=== PATIENT | male | born 1925 | race Caucasian/White ===

== ENCOUNTER 2016-09-02 23:33 | Inpatient (IN) | payer MEDICARE ==
[~2016-09-02] VITALS: Ht 182.9 cm; Wt 84.5 kg
[2016-09-02 23:48] VITALS: BP 141/55; PULSE 76; RESP 16; O2SAT 98
--- NOTE | 2016-09-02 23:49 | ED.REPORT ---
HPI-Trauma Minor / Fall Date of Service Sep 02, 2016 ED Provider: Edmond Velasquez DO An 89 year old male with a history of COPD is brought to the ED via EMS due to left hip pain. The pt was sitting in a chair tonight in his care home home when he attempted to stand to close a window. The pt fell from the chair onto his left hip, resulting in immediate pain. He denies trauma of his head, neck, or upper extremities. Nursing Notes Stated Complaint: GLF, LT HIP PAIN Chief Complaint: Multiple Trauma/Fall Nursing Notes Reviewed: Yes Allergies: Coded Allergies: Sulfa (Sulfonamide Antibiotics) (Verified Allergy, Intermediate, rash, ) cefuroxime (Verified Allergy, Mild, weakness, 09/03/16) clindamycin (Verified Allergy, Mild, diarrhea, 09/03/16) benazepril (Verified Allergy, Unknown, 09/03/16) gemfibrozil (Verified Allergy, Unknown, 09/03/16) levofloxacin (Verified Allergy, Unknown, 09/03/16) metformin (Verified Allergy, Unknown, 09/03/16) naproxen (Verified Allergy, Unknown, 09/03/16) rosuvastatin (Verified Allergy, Unknown, 09/03/16) Miscellaneous Medications ([ventolin]) General Time Seen by MD: 23:49 Chief Complaint Other (Left hip pain) Hx Obtained From: Patient, EMS Arrived By: Ambulance Onset Occurred: 1 - 4 hours ago Symptom Duration: Since onset Recent Healthcare: No recent doctor visit, No recent hospitalization Similar Sx Previous: No Past Medical History Past Medical History COPD, uses inhaler hard of hearing Past Surgical History none reported Smoking History Unknown if Ever Smoker Social History lives in care home home Ambulatory Status Independent Review of Systems Review of Systems Note: denies upper extremity pain Constitutional: Denies: Fever Respiratory: Denies: Non-productive cough, Shortness of breath Musculoskeletal: Reports: Joint pain (left hip), Denies: Back pain, Neck pain Skin: Denies Rash Neurologic: Denies: Headache Complete sys rev & neg: except as marked. Physical Exam Initial Vital Signs Vital Signs (First) Date Time Temp Pulse Resp B/P Pulse Ox O2 Delivery O2 Flow Rate FiO2 09/02/16 23:48 36.5 76 16 141/55 98 Room Air Initial VS: Reviewed General/Constitutional: Awake, Alert hard of hearing Neck: Atraumatic, Supple, Full range of motion Head / Eyes: Atraumatic, Normocephalic, PERRL, EOMI ENT: Atraumatic, Airway patent, Mucous membranes moist Respiratory / Chest: Atraumatic, Breath sounds NL, Breath sounds = bilat, No respiratory distress Cardiovascular: Heart rate NL, Regular rhythm, Heart sounds NL Abdomen: Atraumatic, Soft, Non-tender Back: Atraumatic, Full range of motion Upper Extremity / MS: Atraumatic, Full range of motion Lower Extremity / Pelvis / MS: Neurologic intact, Vascular intact bilateral lower extremity edema with dressings/bandages, chronic left hip shortened and rotated strong pedal pulses Skin: Atraumatic, Color NL, No rash, Warm, Dry Neurologic: Oriented X3, Speech NL, No motor deficits, No sensory deficits, CN II - XII intact Psychiatric: Affect NL, Mood NL Interpretation & Diagnostics Lab Results Interpretation Result Diagram: 09/03/16 0110 09/03/16 0110 Test 09/03/16 01:10 White Blood Count 16.1th/mm3 (3.8-10.1) Red Blood Count 4.58mil/mm3 (4.40-5.80) Hemoglobin 12.0g/dL (13.8-17.2) Hematocrit 38.2% (41.0-50.0) Mean Corpuscular Volume 83.4fL (81-100) Mean Corpuscular Hemoglobin 26.2pg (27.0-35.0) Mean Corpuscular Hemoglobin Concent 31.4% (32.0-37.0) Red Cell Distribution Width 14.7% (12.3-15.4) Platelet Count rolo/L (150-400) Neutrophils (%) (Auto) 52.2% (40-74) Lymphocytes (%) (Auto) 43.2% (14-46) Monocytes (%) (Auto) 4.0% (4-12) Eosinophils (%) (Auto) 0.2% (0-5) Basophils (%) (Auto) 0.2% (0-3) Prothrombin Time 10.7sec (8.1-12.5) Prothromb Time International Ratio 1.00ratio Sodium Level 136mEq/L (134-144) Potassium Level 4.5mEq/L (3.5-5.2) Chloride Level 97mEq/L (97-108) Carbon Dioxide Level 25mmol/L (18-29) Blood Urea Nitrogen 20mg/dL (8-27) Creatinine 0.99mg/dL (0.76-1.27) Estimat Glomerular Filtration Rate 76mL/min (>59) Glucose Level 238mg/dL (60-99) Calcium Level 9.2mg/dL (8.5-10.1) Total Bilirubin 0.6mg/dL (0.0-1.2) Aspartate Amino Transf (AST/SGOT) 11U/L (0-50) Alanine Aminotransferase (ALT/SGPT) 5U/L (0-44) Alkaline Phosphatase 92U/L (25-160) Total Protein 8.6g/dL (6.4-8.4) Albumin 3.7g/dL (3.4-5.0) Prealbumin 18mg/dL (20-40) Procalcitonin 0.05ng/mL (0.00-0.08) Hold Whitaker Top Tube Received (Received) Pulse Oximetry Interpretation Pulse Oximetry Interpretation: 98% on room air Pulse Oximetry: Pulse Ox normal Pulse Oximetry Interpretation: 96% on room air Pulse Oximetry: Pulse Ox normal ECG Interpretation ECG Interpretation: normal sinus rhythm with a rate of 78 ventricular premature complex prolonged MN interval low voltage, extremity and precordial leads consider inferior infarct Time: 00:55 Interpreted by: ED physician X-Ray Chest Interpretation Chest Xray Interpretation: atelectasis and infiltrate in left base Interpretation / Wet Read by: Wet read ED physician X-Ray Interpretation Xray Interpretation: left intertrochanteric hip fracture X-Ray Ordered: Hip left Interpretation / Wet Read by: Wet read ED physician Re-Eval/Medical Decision Med Decision/Clinical Course Displaced intertrochanteric fracture and will need operative intervention. X- ray suspicious for atelectasis versus pneumonia. Mr. Bennett does not have a fever. He has not been coughing. I am not convinced he has pneumonia. I will let the hospitalist service to determine if they want to put him on antibiotics or not. I consulted with orthopedics and Mr. Bennett will be admitted for definitive care. Source of Hx: Old records Re-Evaluation/Progress : Time of Eval: 23:49 Patient Status: Condition improved Re-Evaluation/Progress Note: Pt informed of his radiology results and the plan for admission during the initial interview. The pt understands and agrees with the plan. All questions are addressed at this time. Consultation #1: Referral / Consult Name: Pancho Rivera MD Consulted With: Orthopedic Call Returned at: 00:58 Dispute Resolution Specialist: Agrees with eval, Agrees with plan Note: Spoke with Dr. Rivera, orthopedist, regarding pt's case. Dr. Rivera agrees with the evaluation and agrees to see the pt in the morning. Consultation #2: Referral / Consult Name: Edi Sauer MD Consulted With: Hospitalist Call Returned at: 01:12 Dispute Resolution Specialist: Agrees with evxavier, Agrees with plan, Accepts admit Note: Spoke with Dr. Sauer, hospitalist, regarding pt's case. Dr. Sauer agrees with the evaluation and agrees to admit the pt. Counseled Regarding: Diagnosis, Lab results, Need for admission Discharge & Departure Impression: Primary Impression: Hip fracture Encounter type: initial encounter Fracture type: closed Laterality: left Qualified Code: S72.002A - Fracture of unspecified part of neck of left femur, initial encounter for closed fracture Disposition: ADMITTED TO HOSPITAL Discharge Condition All VS Reviewed: Yes Condition: Stable Scribe Attestation Portions of this note were transcribed by Scott Gleason. I, Dr. Velasquez personally performed the history, physical exam and medical decision-making; I reviewed and confirmed the accuracy of the information in the transcribed note. Signed by: Rene Chisholm, 09/03/2016 and 0157. Edmond Velasquez DO Sep 02, 2016 23:49 SCOTT GLEASON Sep 03, 2016 01:08
[2016-09-03] VITALS (13 sets, daily range): BP systolic 96–135; BP diastolic 50–75; PULSE 60–84; RESP 16–27; O2SAT 88–97
[2016-09-03 01:24] LABS: BASOPHILS % (AUTO) 0.2 % (0-3)
[2016-09-03 01:28] LABS: EOSINOPHILS % (AUTO) 0.2 % (0-5); Mean Corpuscular Hemoglobin 26.2 pg (27.0-35.0); Mean Corpuscular Volume 83.4 fL (81-100); NEUTROPHILS % (AUTO) 52.2 % (40-74)
[2016-09-03] MEDS ORDERED: 0.9% Sodium Chloride 500 ML IV ONE (02:10)
--- NOTE | 2016-09-03 03:37 | NUR ---
admission admitted to room 1005. left hip fracture. complains of pain rates 5. no pain medication ordered. notified ME via cookpaging alert and oriented. answered all questions. reviewed plan of care. no questions at this time.
[2016-09-03] MEDS ORDERED: Acetaminophen IV 1,000 MG in IV Premix 1 EACH IV ONE (03:40)
[2016-09-03] MEDS: Lactated Ringer's 1,000 ML IV SCH ×3 (04:10→23:32)
--- NOTE | 2016-09-03 04:46 | NUR ---
son called son jase called from [place]. reports patient has ct scan of lungs scheduled for sunday. patient has had pneumonia 4x. and has "black spot"on lungs. called night resident jania. reported above new orders received care ongoing.
[2016-09-03] MEDS ORDERED: fentaNYL-PF 50 mCg/mL 2 mL Inj ONE (05:12)
[2016-09-03] MEDS ORDERED: Propofol 10 mg/mL 20 mL Inj ONE (05:12)
[2016-09-03] MEDS ORDERED: Succinylcholine Chloride 20 mg/mL 5 mL Inj ONE (05:12)
[2016-09-03] MEDS ORDERED: Ondansetron 2 mg/mL 2 mL Inj ONE (05:12)
[2016-09-03] MEDS ORDERED: Rocuronium 10 mg/mL 5 mL Inj ONE (05:12)
[2016-09-03] MEDS ORDERED: Phenylephrine/NS 100 mCg/mL 10 mL Syringe IVPUSH ONE (05:12)
[2016-09-03] MEDS ORDERED: HYDROmorphone 0.5 mg/0.5 mL iSecure Syringe IVPUSH ONE (05:40)
--- NOTE | 2016-09-03 05:58 | NUR ---
urine retention patient unable to void. bladder scan 310ml spoke to dr Rivera, received okay for straight cath. will send urine down to lab. explained to patient. gave ok.
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
[2016-09-03] MEDS ORDERED: 0.9% Sodium Chloride 250 ML ONE (06:20)
[2016-09-03] MEDS: cefTRIAXone Inj 2,000 MG in Dextrose 5% Minibag Plus 50 ML IV SCH (06:22)
[2016-09-03] MEDS: Azithromycin Inj 500 MG in Dextrose 5% w/Vial Mate 250 ML IV SCH (07:29)
--- NOTE | 2016-09-03 07:29 | DRSVH ---
PROCEDURE: X-RAY PELVIS W/LAT HIP (LT) ([id number]) INDICATIONS: fall, hip pain TECHNIQUE: AP pelvis with lateral view(s) of the left hip(s). COMPARISON: None. FINDINGS: Bones: Moderately displaced comminuted left intertrochanteric hip fracture. Linear lucency traversing the left hemisacrum. Soft tissues: The visualized bowel gas pattern is normal. No suspicious soft tissue calcifications. IMPRESSION: 1. Left intertrochanteric hip fracture. 2. Possible left hemisacral fracture. 3. Findings relayed to Dr. Leigh via front end drupal developer staff Rani on 09.03.16 at 0727 hours. Dictated by: Zuri Amezquita M.D. on 09/03/2016 at 7:23 Approved by: Zuri Amezquita M.D. on 09/03/2016 at 7:27
--- NOTE | 2016-09-03 07:30 | DRSVH ---
PROCEDURE: X-RAY LEFT FEMUR, TWO VIEWS ([id number]) INDICATIONS: left hip fracture, fall TECHNIQUE: 2 views of the femur were acquired. COMPARISON: None. FINDINGS: Bones: Moderately displaced comminuted left intertrochanteric hip fracture. No suspicious bony lesion s. Soft tissues: No suspicious soft tissue calcifications or masses. IMPRESSION: Left intertrochanteric hip fracture. Dictated by: Zuri Amezquita M.D. on 09/03/2016 at 7:28 Approved by: Zuri Amezquita M.D. on 09/03/2016 at 7:28
--- NOTE | 2016-09-03 07:34 | DRSVH ---
PROCEDURE: X-RAY CHEST ONE VIEW ([id number]) INDICATIONS: hip fracture TECHNIQUE: One view of the chest was acquired. COMPARISON: None. FINDINGS: Surgical changes and devices: None. Lungs and pleura: No pleural effusions or pneumothorax. Mild patchy bibasilar airspace opacity. Mediastinum: Mediastinal contours appear normal. Heart size is normal. Bones and chest wall: No suspicious bony lesions. Overlying soft tissues appear unremarkable. IMPRESSION: Bibasilar atelectasis versus pneumonia. Dictated by: Zuri Amezquita M.D. on 09/03/2016 at 7:32 Approved by: Zuri Amezquita M.D. on 09/03/2016 at 7:33
[2016-09-03 08:13] LABS: APPEARANCE,URINE CLEAR (CLEAR,HAZY); COLOR,URINE YELLOW (YELLOW); OCCULT BLOOD,URINE SMALL (NEGATIVE); UROBILINOGEN,URINE NORMAL (NORMAL)
[2016-09-03] MEDS: Heparin 5,000 Unit/mL Inj SUBQ SCH ×2 (08:25→16:30)
--- NOTE | 2016-09-03 08:54 | NUR ---
PT attempted but not completed due to patient going to surgery today. Will await new consult s/p surgery.
[2016-09-03] MEDS ORDERED: Glucose 40% Oral Gel 15 Gm Tube PO PRN (09:00)
--- NOTE | 2016-09-03 10:30 | NUR ---
CONSENT Telephone consent obtained by Dr. Rivera from patients Nile Bennett, who is the patients son. Phone number is: [phone].
[2016-09-03] MEDS ORDERED: Lactated Ringer's 1,000 ML IV ONE ×2 (11:50→18:25)
--- NOTE | 2016-09-03 11:51 | PCM.HPANE ---
Patient Data Surgeon Admitting Provider:Edi Sauer MD Attending Provider:Edi Sauer MD Primary Care Physician:Kyle Holcomb MD Other Provider: Reason for Visit Lt Hip Intertroch Fracture Ht/WT & BMI Height (Feet): 6 Height (Inches): 0.00 Weight (Kilograms): 84.500 Body Mass Index 25.23 Allergies Coded Allergies: Sulfa (Sulfonamide Antibiotics) (Verified Allergy, Intermediate, rash, ) cefuroxime (Verified Allergy, Mild, weakness, 09/03/16) clindamycin (Verified Allergy, Mild, diarrhea, 09/03/16) benazepril (Verified Allergy, Unknown, 09/03/16) gemfibrozil (Verified Allergy, Unknown, 09/03/16) levofloxacin (Verified Allergy, Unknown, 09/03/16) metformin (Verified Allergy, Unknown, 09/03/16) naproxen (Verified Allergy, Unknown, 09/03/16) rosuvastatin (Verified Allergy, Unknown, 09/03/16) Past Anesthesia History Anesthesia History: Denies:: Anesthesia Reactions Diabetes History Hx Diabetes?: No Current Bedside Blood Glucose: 255 MRSA MRSA: No Medications Reported Medications [ventolin] No Conflict Check 09/03/16 History Denture Type: Full- Upper Full- Lower Hx of Heart Problems?: No Hx of Respiratory Problem?: No Hx Neurologic Problems?: No Hx of GI Problems?: No Hx of Problems?: No Male Hx: Denies:: Prostate Problems Hx Musculoskeletal Problems?: No Hx of Psycho/Social Problems?: No Hx Surgeries?: No Hx Any Other Health Problems?: No Other History: Denies:: Cancer Hospitalization Thyroid Disease History Blood Transfusions: Positive for:: Accept Blood Products? Denies:: Blood Transfuse Reaction Blood Transfusions Hx Diabetes: NoBedside Blood Glucose: 255 Hx Alcohol Use: NoHx Substance Use: No Smoking Status: Former Smoker Have You Smoked inLast 12 mo: No Stop/Bang Treated for Sleep Apnea?: No Do You Have a CPAP Machine?: No S-Snoring: Do You Snore Loudly: No T-Tired: feel tired, fatigued: No O-Obsered: Observed not breath: No P-Blood Pressure: treated: No B- Body Mass Index > 35 kg/m2: No A- Age over 50: Yes N- Neck Large Circumference: No G- Gender Male: Yes LYNN Total Score: 1 Risk Assessment Category Category 1A: Patient has history of documented sleep apnea, and HAS NOT received any narcotic, sedative or anesthesia administration during this stay. Category 1B: Patient has history of documented sleep apnea, and HAS received any narcotic , sedative or anesthesia administration during this stay Category 2: Patient has SUSPECTED Obstructive Sleep Apnea, and HAS received any narcotic , sedative or anesthesia administration during this stay. Category 3: Patient has SUSPECTED Obstructive Sleep Apnea and HAS NOT received narcotic, sedative or anesthesia administration during this stay. Category 4: Outpatient in Procedural Areas with known sleep apnea or who screen positive for High Risk via the STOP/BANG questionnaire. Exam Exam Vital Signs Vital Signs Date Time Temp Pulse Resp B/P Pulse Ox O2 Delivery O2 Flow Rate FiO2 09/03/16 08:53 36.3 75 16 135/68 95 Room Air General Appearance: Alert, Oriented X3, Cooperative HEENT/AIRWAY: MP 2, Neck Movement (50% expected ROM, Patient cannot lay flat due to back pain.), Mouth Opening (upper dentures, good mouth opening) Lungs: Clear to Auscultation, Coarse Heart: Exam Unremarkable Meds/Labs/Diagnostics Admission Meds Current Medications Sodium Chloride 500 ml @ 0 mls/hr Q0M ONCE IV Last administered on 09/03/16 02 :18; Start 09/03/16 at 02:10; Stop 09/03/16 at 02:11; Status DC Lactated Ringer's 1,000 ml @ 75 mls/hr [id number] IV Last administered on 04:10; Start 09/03/16 at 02:26 Acetaminophen/ Premix (Tylenol IV/IV Premix) 100 ml @ 400 mls/hr OT ONCE IV Last administered on 09/03/16 04:10; Start 09/03/16 at 03:40; Stop 09/03/16 at 03:54; Status DC Hydromorphone HCl 0.25 mg 0.25 mg OT ONCE IVPUSH Last administered on 05:55; Start 09/03/16 at 05:40; Stop 09/03/16 at 05:49; Status DC Ceftriaxone Sodium 2000 mg/ Dextrose/Water 50 ml @ 100 mls/hr Q24H IV Last administered on 09/03/16 06:22; Start 09/03/16 at 06:00 Azithromycin 500 mg/Dextrose/Water 250 ml @ 250 mls/hr Q24H IV Last administered on 09/03/16 07:29; Start 09/03/16 at 06:00 Sodium Chloride (Normal Saline) 250 ml @ STK-MED ONCE .ROUTE Last administered on 09/03/16 06:33; Start 09/03/16 at 06:20; Stop 09/03/16 at 06:22 ; Status DC Bedside Blood Glucose: 255 Labs Test 09/03/16 01:10 09/03/16 07:23 White Blood Count 16.1th/mm3 (3.8-10.1) Red Blood Count 4.58mil/mm3 (4.40-5.80) Hemoglobin 12.0g/dL (13.8-17.2) Hematocrit 38.2% (41.0-50.0) Mean Corpuscular Volume 83.4fL (81-100) Mean Corpuscular Hemoglobin 26.2pg (27.0-35.0) Mean Corpuscular Hemoglobin Concent 31.4% (32.0-37.0) Red Cell Distribution Width 14.7% (12.3-15.4) Platelet Count rolo/L (150-400) Neutrophils (%) (Auto) 52.2% (40-74) Lymphocytes (%) (Auto) 43.2% (14-46) Monocytes (%) (Auto) 4.0% (4-12) Eosinophils (%) (Auto) 0.2% (0-5) Basophils (%) (Auto) 0.2% (0-3) Prothrombin Time 10.7sec (8.1-12.5) Prothromb Time International Ratio 1.00ratio Sodium Level 136mEq/L (134-144) Potassium Level 4.5mEq/L (3.5-5.2) Chloride Level 97mEq/L (97-108) Carbon Dioxide Level 25mmol/L (18-29) Blood Urea Nitrogen 20mg/dL (8-27) Creatinine 0.99mg/dL (0.76-1.27) Estimat Glomerular Filtration Rate 76mL/min (>59) Glucose Level 238mg/dL (60-99) Calcium Level 9.2mg/dL (8.5-10.1) Total Bilirubin 0.6mg/dL (0.0-1.2) Aspartate Amino Transf (AST/SGOT) 11U/L (0-50) Alanine Aminotransferase (ALT/SGPT) 5U/L (0-44) Alkaline Phosphatase 92U/L (25-160) Total Protein 8.6g/dL (6.4-8.4) Albumin 3.7g/dL (3.4-5.0) Procalcitonin 0.05ng/mL (0.00-0.08) Hold Whitaker Top Tube Received (Received) Urine Color Yellow (YELLOW) Urine Appearance Clear (CLEAR,HAZY) Urine pH 6.0 (5.0-8.0) Urine Specific [place] 1.022 (1.003-1.035) Urine Protein 30mg/dL (NEG,TRACE) Urine Glucose (UA) Negativemg/dL (NEGATIVE) Urine Ketones Negativemg/dL (NEGATIVE) Urine Occult Blood Small (NEGATIVE) Urine Nitrite Negative (NEGATIVE) Urine Bilirubin Negative (NEGATIVE) Urine Urobilinogen Normalmg/dL (NORMAL) Urine Leukocyte Esterase Negative (NEGATIVE) Urine RBC 11-50/hpf (0-2) Urine WBC 0-5/hpf (0-5) Urine Epithelial Cells Few/hpf (NONE-MOD) Urine Crystals None seen (NONE SEEN) Urine Bacteria None/hpf (NONE-FEW) Urine Hyaline Casts Occasional/lpf (NONE) Urine Granular Casts None seen (NONE SEEN) Urine Waxy Casts None seen (NONE SEEN) Urine Red Blood Cell Casts None seen (NONE SEEN) Urine White Blood Cell Casts None seen (NONE SEEN) Urine Mucus None seen (None Seen) Urine Trichomonas None seen (NONE SEEN) Urine Yeast None (NONE SEEN) Urinalysis Comment None Urine Culture Reflexed Not indicated Urine Legionella pneumophilia Ag Negative (Negative) Plan Impression Patient chart reviewed, patient interviewed and anesthestic plan with risks, benefits, and alternatives discussed, and informed consent obtained. ASA Physical Status: ASA2 Mod Systemic Disease Anesthetic Plan: GA Bene/Risks/Altern/Consents: Yes HP Complete Prior to Induction: Yes Chapincito Zambrano MD Sep 03, 2016 11:51
[2016-09-03] MEDS: Insulin LISPRO 300 Unit/3 mL Inj SUBQ SCH ×3 (12:08→22:00)
--- NOTE | 2016-09-03 12:12 | NUR ---
Social Work: Initial Assessment Data/Assessment: Per EMR review, pt is an 89 year old male admitted for Left Hip Intertach Fracture. Pt is Medicare insurance with no supplement, LTC or VA benefits. PCP is Kyle Holcomb MD. NOK is David Bennett, son, . Advanced directives requested from [facility] staff and pt's family. Readmit score not entered at this time. EMR reviewed, pt has baseline dementia and resides at [facility]. Pt is scheduled for surgery to repair hip fracture. RECREATIONAL AIDE spoke with pt's son via telephone to discuss discharge planning. Sw role and contact info provided. See initial assessment. They confirm pt is from [facility]. Their preference is for him to return there with HH. RECREATIONAL AIDE discussed options and that pt would likely require a higher level of care. They are agreeable to planning for possible SNF. SNF/HH CHOICE LIST emailed to pt's family at [email or web address]. They are reviewing and will call RECREATIONAL AIDE back with preferences. They state that the pt is scheduled for a CT scan of his chest however they are wondering if this can be completed in the hospital. RECREATIONAL AIDE will communicate this request with however explained to family that it may not be ordered if it is something that can wait to be completed as an Outpatient. PPW on chart PASSR completed t/c to [facility]. RECREATIONAL AIDE spoke with DONY Hendricks. She states pt is mostly 1P CGA for most mobility. Pt sleeps in a reclining chair and uses a 4WW at baseline. Pt is able to transfer himself out of his chair I but is very unstable on his feet. They, too, requested a CT scan of pt's lungs and state they have noticed a persistent cough especially when pt is eating. They are concerned for possible aspiration. P: RECREATIONAL AIDE to follow up with family about SNF preference; Anticipate pt to require continued rehab after discharge. RECREATIONAL AIDE to continue to follow. MILDRED Turpin Addendum: 09/03/16 at 1225 by ADONIS HAGER SS Amended: Links added. Addendum: 09/03/16 at 1620 by ADONIS MORGAN Family preference is for 1- [facility] 2- [facility] RECREATIONAL AIDE provided referrals and gave access
[2016-09-03] MEDS ORDERED: ventolin (12:53)
--- NOTE | 2016-09-03 13:56 | NUR ---
MENTATION/SKIN/IFC Patient is alert and oriented to person and place. Hard of hearing. Answers questions appropriately. Morphine 1 mg IVP administered for complaints of pain. Denies nausea. No emesis noted. Denies SOB. Skin care rendered. Mepilex foam applied over areas of skin tear. IFC inserted per orders. Urine sample sent to the lab. Alarm is on for safety. Addendum: 09/03/16 at 1401 by SURINDER SIEGEL RN MED REC Med rec entered. Dr. Macho glover to review med rec. Addendum: 09/03/16 at 1754 by SURINDER SIEGEL RN REPORT Report given to Nadia in the OR. Patient is scheduled for surgery this afternoon.
[2016-09-03] MEDS: Albuterol-Ipratropium 3 mL Inhalation Solution NEB PRN (17:09)
--- NOTE | 2016-09-03 18:03 | NUR ---
TO OR Report given to Nadia. Patient transferred to the OR via a hospital bed.
[2016-09-03] MEDS ORDERED: Lactated Ringer's 1,000 ML IV SCH (19:14)
[2016-09-03] MEDS ORDERED: Lactated Ringer's 500 ML IV PRN (19:14)
[2016-09-03] MEDS ORDERED: fentaNYL-PF 50 mCg/mL 2 mL Inj IVPUSH PRN (19:15)
[2016-09-03] MEDS ORDERED: Phenylephrine 10,000 mCg/mL Inj IVPUSH PRN (19:15)
[2016-09-03] MEDS ORDERED: Dexamethasone 4 mg/mL Inj IVPUSH PRN (19:15)
[2016-09-03] MEDS ORDERED: Ondansetron 2 mg/mL 2 mL Inj IVPUSH PRN ×2 (19:15→21:45)
[2016-09-03] MEDS ORDERED: hydrALAZINE 20 mg/mL Inj IVPUSH PRN (19:15)
[2016-09-03] MEDS ORDERED: EPHEDrine Sulfate 50 mg/mL Inj IVPUSH PRN (19:15)
[2016-09-03] MEDS ORDERED: Labetalol 5 mg/mL 4 mL Inj IV PRN (19:15)
[2016-09-03] MEDS ORDERED: HYDROmorphone 1 mg/mL Inj IVPUSH PRN (19:15)
[2016-09-03] MEDS ORDERED: Atropine 0.4 mg/mL Inj IVPUSH PRN (19:15)
[2016-09-03] MEDS ORDERED: Bupivacaine 0.5%/EPI 50 mL Inj INFILTRATE ONE (19:17)
--- NOTE | 2016-09-03 19:42 | CONS ---
[address] [address] CONSULTATION REPORT PATIENT: ROCKY PEREZ : 1925 MR#: [id number] ADMIT: 09/03/2016 JOB ID: [id number] DATE OF SERVICE: 09/03/2016 This is an orthopedic consultation with preoperative evaluation, complex patient, CPT code 02088 -57 CHIEF COMPLAINT: This is an 89-year-old male I was asked to see in orthopedic consultation by Dr. Edmond Velasquez from the emergency department, as well as by Dr. Luther Yoder. This is an 89-year-old male who had a ground level fall at the [facility] in [place] sustaining a left intertrochanteric femoral fracture. This occurred late on the evening of September 02, 2016. He was admitted to the hospital after midnight on September 03, 2016. The patient has been kept n.p.o. for anticipated surgery. Evidently patient was sitting in his chair, got up with his rolling walker to close the window, lost his balance, fell from a ground level height sustaining a comminuted left intertrochanteric femoral fracture. There was no loss of consciousness. I discussed the case with the patient's son. He indicates his father has opted not to take any medications and he stopped most of his medications a few months ago. Of significance, he has had prior problems with hospitalization for recurrent pneumonia requiring extended courses of antibiotics including Augmentin. He also has some type of pulmonary mass that they are going to work up as per Dr. Holcomb and he was scheduled as an outpatient to undergo a CT scan of the chest this upcoming week. PAST MEDICAL HISTORY: The patient is very hard of hearing and a poor historian. History was obtained from medical records. ALLERGIES: 1. SULFA. 2. CEFUROXIME causing weakness. 3. CLINDAMYCIN, diarrhea. 4. BENAZEPRIL. 5. GEMFIBROZIL. 6. LEVOFLOXACIN. 7. METFORMIN. 8. NAPROSYN. 9. ROSUVASTATIN. MEDICATIONS: The patient is not taking any regular medications. REVIEW OF SYSTEMS: HEENT: Patient has severe hearing deficit. Respiratory: Does have productive sputum and a URI Cardiovascular: No chest pain. GI: No nausea or vomiting. Does have problems with dysphagia and is on a thicker diet. Neuro: No headache or dizziness. PAST MEDICAL HISTORY: Positive for COPD and asthma, hypertension, type 2 diabetes, BPH, renal stones, osteoarthritis, lumbar spine. Hyperlipidemia, vitamin D deficiency. There is also history of cerebrovascular disease and recurrent bouts of pneumonia. PRIOR SURGERIES: Patient has had low back disk surgery, 2012. Sinus surgery 2007. Left carotid endarterectomy, 2005. Arthroscopic knee surgery on the right, 1996. Hemorrhoidectomy, 1990. Septoplasty, 1980. SOCIAL HISTORY: Lives in a assisted living in [facility]. Does not drink or smoke. The patient did have a prior CT of the chest without contrast, September 07, 2015, showing a high-grade obstruction in the right mainstem bronchus with mucous plugging and could not rule out possible mass and had underlying lymph node enlargement. SOCIAL HISTORY: The patient is reported as being a . He does have a son that I have been in contact with. PHYSICAL EXAMINATION: 182 cm male, 84 kg. Patient is resting in bed comfortably, as long as the leg is not being moved. The left leg is shortened and externally rotated. He has good peripheral pulses. Sensibility intact. He is able to move the foot and toes. Calf is soft. X-rays show that he has a left intertrochanteric femoral fracture and significant osteoporosis. There is also a possible left inferior sacral fracture along the SI joint. White count 16,100, hemoglobin 12.6, hematocrit 30.2, platelet count unable to enumerate due to clumping of the platelets. Sodium 136, potassium 4.5, chloride 97, CO2 25, BUN 20, creatinine 0.99. Calcium 9.2, total protein low at 8.6. Liver function tests within normal limits. Urinalysis: Specific gravity 1.022. Urine protein is 30, 11-50 red cells, 0-5 white cells. PT 10.7, INR 1.0. IMPRESSION: Left intertrochanteric femoral fracture. Possible inferior sacral chip avulsion fracture of the left sacroiliac joint. PLAN: I have explained the risks and benefits of surgery to the son, who has power of privacy attorney. That is Rocky Perez. His cell phone number is [phone]. I have explained the risks for bleeding, infection, pain, and stiffness, possibility for damage to surrounding neurovascular structures. Potential for delayed union, nonunion, malunion, and hardware failure. He is also aware there is a risk for DVT, possible pulmonary emboli, and possible significant cardiopulmonary event. Surgical consent has been signed and witnessed. We will proceed with surgery later today after some other emergency surgeries are already completed. We also have authorization for blood transfusion if needed. Son is aware that anesthesia will also need to speak to him for consent. He also needs to have his pulmonary mass re-evaluated with a new CT scan and the hospital service can certainly order this once he has been stabilized comfortably postoperatively.Morbidity and mortality risks carefully explained to the son who has power of privacy attorney and he realizes that the risk of surgery needs to be undertaken to allow the patient to be comfortable and mobilized. His recurrent bout of pneumonia and even potential pulmonary tumor mass place him at a higher risk level. The son is aware and has agreed to the surgery. CC: [facility] CC: Hardik Vallejo
[2016-09-03] MEDS ORDERED: diphenhydrAMINE 25 mg Capsule PO PRN (21:45)
[2016-09-03] MEDS ORDERED: Sodium Biphos-Phos 133 mL Enema RECTAL PRN (21:45)
[2016-09-03] MEDS ORDERED: Ketorolac 15 mg/mL Inj IVPUSH PRN (21:45)
[2016-09-03] MEDS ORDERED: Polyethylene Glycol (PEG) 17 Gm Powder PO PRN (21:45)
[2016-09-03] MEDS ORDERED: Magnesium Hydroxide 10 mL Oral Concentration PO PRN (21:45)
[2016-09-03] MEDS ORDERED: HYDROmorphone 0.5 mg/0.5 mL iSecure Syringe IVPUSH PRN ×2 (21:45→22:21)
--- NOTE | 2016-09-03 21:47 | PCM.ANEP1 ---
Post Anesthesia Phase 1 PACU Phase 1 Assessment Vital Signs Vital Signs Date Time Temp Pulse Resp B/P Pulse Ox O2 Delivery O2 Flow Rate FiO2 09/03/16 17:12 84 16 94 Room Air 09/03/16 15:23 36.7 76 23 130/63 95 Room Air 09/03/16 14:38 78 18 96 Room Air Anesthetic Administered: GA Level of Alertness: Sleepy, easy to arouse DENISE's with Equal Strength: Yes Pain: Yes Nausea or Vomiting: No Oxygen Delivery: Room Air Lungs: Normal Air Movement, Coarse Chapincito Zambrano MD Sep 03, 2016 21:47
--- NOTE | 2016-09-03 22:00 | DRSVH ---
PROCEDURE: X-RAY LEFT FEMUR, TWO VIEWS ([id number]) INDICATIONS: C-ARM ASSISTED LEFT HIP ORIF TECHNIQUE: Multiple intraoperative spot views of the femur were acquired. COMPARISON: None. FINDINGS: Bones: Status post ORIF of the left hip intertrochanteric fracture. Alignment is anatomic. Soft tissues: No suspicious soft tissue calcifications or masses. IMPRESSION: Left hip ORIF. Dictated by: Zuri Amezquita M.D. on 09/03/2016 at 21:58 Approved by: Zuri Amezquita M.D. on 09/03/2016 at 21:58
--- NOTE | 2016-09-03 22:43 | OP ---
[address] [address] OPERATIVE REPORT PATIENT: MARISOL PEREZ : 1925 MR#: [id number] ADMIT: 09/03/2016 JOB ID: [id number] DATE OF SURGERY: 09/03/2016 PREOPERATIVE DIAGNOSIS(ES): Comminuted left intertrochanteric-subtrochanteric femoral fracture. ICD- 10 code S72.142A, S72.22XA POSTOPERATIVE DIAGNOSIS(ES): Comminuted left intertrochanteric-subtrochanteric femoral fracture. ICD -10 code S72.142A, S72.22XA PROCEDURE: Open reduction, internal fixation, comminuted left intertrochanteric-subtrochanteric femoral fracture with a long locked intramedullary trochanteric femoral nail. CPT - code 44693 IMPLANTS UTILIZED: 1. Synthes trochanteric femoral nail, 12 mm diameter, 400 mm length, 125 degree angle. 2. A 95 mm compression screw and a 40 mm distal interlock screw. SURGEON: Pancho Rivera MD. DRILLER PORTABLE: Johana Villanueva PA-C. Sophie Villanueva was an integral part of the procedure assisting with traction and reduction of the fracture, and surgical exposure. ANESTHESIA: General. ESTIMATED BLOOD LOSS: 200 mL. DRAINS: None. COMPLICATIONS: None. SPONGE AND NEEDLE COUNT: Correct. SPECIMEN: No specimen to pathology. INDICATIONS: This is an 89-year-old male who slipped while walking with his walker, ground level fall, sustaining a left intertrochanteric-subtrochanteric femoral fracture. The patient's son has power of estate planning attorney, he was consulted, and verbal consent was obtained with nursing witnessing the consent. The patient has had recurrent pneumonia and has productive sputum as well as a possible pulmonary tumor that is pending further work-up. PROCEDURE: The patient was carefully taken from his bed under general anesthetic and placed on the fracture table. Both legs were placed in the traction boots. The right leg was placed in a scissor technique. The left hip was prepped and draped in sterile fashion. After appropriate time-out was called, an incision was fashioned just proximal to the tip of the greater trochanter. Incision was carried down to the tensor fascia lis. The gluteus muscles were bluntly . The guide pin was placed into the tip of the greater trochanter utilizing the curved awl guide. The guide pin was slightly posterior and a parallel guide was utilized to direct more anterior guide pin. It was confirmed to be in good position on AP and lateral views. The proximal portion of the canal was then opened with a larger reamer. A ball-tipped guide was placed down the femoral shaft down to the superior aspect of the proximal portion of the patella. The guide jana was measured and it was felt a 400 mm jana length would be the most appropriate size. Sequential reamers were then reamed up to 13.5 mm. I finally did have some chatter within the intramedullary canal at about 12.5 to 13 mm. A 400 mm length x 12 mm diameter Synthes 125 mm angle jana was then placed down the femoral shaft. It was positioned proximally in order to place the proximal interlock guidewire in the best position. Attention was next turned to guide pin placement for the compression screw. The ball tipped guide guide pin was subsequently removed. A small incision was fashioned over the lateral aspect of the femur carried down to the tensor fascia lis. The vastus lateralis was elevated off the edge of the femur for a small section. The alignment jig was then placed on the outside of the femoral alignment jig for the jana. Guide pin was then introduced into the lateral cortex and into the femoral neck and head. Initial pin placed slightly posterior and then it was directed more central. It was placed in good position and measured, and it was felt that a 95 mm screw would be the most appropriate length. The outer cortex was drilled, and then the inner cortex was drilled. A 95 mm compression screw was then placed. Image intensification confirmed good position of the compression screw on AP and lateral views. Utilizing the flexible screwdriver, the proximal portion of the jana was locked and then turned back 180 degrees to allow for compression of the fracture. The jana appeared to position nicely within the femoral shaft and the fracture reduced adequately. The proximal alignment jig was then removed from the proximal portion of the jana. Please note, the ball-tipped guide was removed before placing the compression screw. Attention was next turned to the distal interlock. The C-arm was positioned to obtain perfect circles distally. A small incision was made in the skin down to the tensor fascia lis. The vastus lateralis was swept off the lateral aspect of the femur for small area. Utilizing a drill bit with a radiolucent guide this was tapped in position. It was noted to be in good position through the oblong hole. It was then tapped across the jana and the drill was attached, drilling the final medial cortex. It was then measured and a 48 mm fully threaded distal interlock screw was placed. Image intensification confirmed good position of the distal interlock screws on AP and lateral views. Permanent x-rays were taken with image intensification. The wounds were thoroughly irrigated with antibiotic solution. The two smaller incisions along the mid and distal portion of the femur were closed with interrupted sutures of 0 and 2-0 Vicryl and skin reapproximated with roland. The most proximal wound left tensor fascia lis was closed with interrupted horizontal mattress sutures of #1 Vicryl and the subcutaneous layers were closed with interrupted sutures of 0 and 2-0 Vicryl. Skin was reapproximated with roland. Marcaine 0.5% with epinephrine was placed in the wound. Xeroform and dry sterile dressings were applied. The patient was carefully taken off the fracture table and taken to recovery room in stable condition. Sponge and needle count correct. PLAN: The patient may be mobilized out of bed to tolerance over the next 1-2 days. I did contact his son and gave him a followup report. The patient does have probable recurrent pneumonia and may even have a pulmonary mass, and he is supposed to have a CAT scan to further evaluate pulmonary mass. He also needs to be careful with his eating since he does have problems with dysphagia and needs to have thickened liquids. [place] will need to be removed in about two weeks. He may be partial weightbearing with a walker with maximal assistance. He should be seen again in the office in two weeks for staple removal and repeat x-rays. Patient's son is aware of the potential for significant postoperative morbidity with this patient with chronic pulmonary issues and recurrent pneumonia. CC: [facility] CC: Hardik Vallejo
[2016-09-03] MEDS: 0.9% Sodium Chloride 1,000 ML IV SCH (22:57)
--- NOTE | 2016-09-03 23:01 | NUR ---
Return from OR Pt returned from OR at 2230, sleepy but awake, uncooperative with all care. Casey patent, IV fluids infusing. States "I hurt an awful lot" but declines offer of pain medication, will work on providing relief as soon as pt allows. States clearly, "just leave me alone!" Dressing C/D/I; will place SCDs and mepilex to open sacral area as soon as pt allows. Will not cooperate with O2 via NC; pulse oximetry shows 87-90% on RA. Frequent repositioning for skin care as pt allows. Hourly rounding ongoing.
[2016-09-03] MEDS: Sodium Chloride LOK Flush 10 mL Syringe IV SCH (23:32)
[2016-09-04] MEDS: CeFAZolin Inj 2 GM in IV Premix 1 EACH IV SCH ×2 (00:46→08:20)
[2016-09-04 04:55] VITALS: BP 123/64; PULSE 91; RESP 16; O2SAT 98
[2016-09-04] MEDS: cefTRIAXone Inj 2,000 MG in Dextrose 5% Minibag Plus 50 ML IV SCH (05:21)
[2016-09-04] MEDS: Azithromycin Inj 500 MG in Dextrose 5% w/Vial Mate 250 ML IV SCH (06:06)
--- NOTE | 2016-09-04 06:15 | PCM.PNORTH ---
Subjective Date of Service: Sep 04, 2016 Visit Information: Reason for Visit Lt Hip Intertroch Fracture Surgery/Surgery Date ORIF L INT FEMORAL FX 09/03/16 Post-Op Day # Date of Admission: Sep 03, 2016 at 01:23 Hospital Day # Subjective Found patient sleeping and easily awakened. Complains of back discomfort and being sleepy and tired. No complaints of hip or leg pain at this time. Patient is trying to get out of bed and he is repeatedly caution to just relax and stay in bed and that we will help him mobilize today. Postop General: No Shortness of Breath, No Chest Pain Pain Management: IV Push (morphine sulfate) Objective Exam Objective Patient is awake and communicative with questionable cognitive status. Interoperative dressing is clean dry and intact. f is mildly swollen and nontender. Thigh is soft and nontender. Normal and sensation are intact in left lower extremity distally. SCD is in place on right lower extremity Casey is in place and working. Urine output is near 30 mL per hour. Vital Signs and I/O Vital Sign - Last Date Time Temp Pulse Resp B/P Pulse Ox O2 Delivery O2 Flow Rate FiO2 09/04/16 04:55 36.6 91 16 123/64 98 Nasal Cannula 3.00 Intake and Output 09/03/16 09/03/16 09/04/16 Cumulative From/Thru 15:00 23:00 07:00 09/02/16 23:48 - 09/03/16 22:31 Intake Total 2543 ml 3298 ml Output Total 600 ml 1025 ml Balance 1943 ml 2273 ml Intake Oral 0 ml 0 ml IV Total 2543 ml 3298 ml Output Urine Total 400 ml 825 ml Estimated Blood Loss 200 ml 200 ml Lab & Micro Results Laboratory Tests Test 09/03/16 07:23 09/03/16 14:00 Urine Color Yellow (YELLOW) Urine Appearance Clear (CLEAR,HAZY) Urine pH 6.0 (5.0-8.0) Urine Specific [place] 1.022 (1.003-1.035) Urine Protein 30mg/dL (NEG,TRACE) Urine Glucose (UA) Negativemg/dL (NEGATIVE) Urine Ketones Negativemg/dL (NEGATIVE) Urine Occult Blood Small (NEGATIVE) Urine Nitrite Negative (NEGATIVE) Urine Bilirubin Negative (NEGATIVE) Urine Urobilinogen Normalmg/dL (NORMAL) Urine Leukocyte Esterase Negative (NEGATIVE) Urine RBC 11-50/hpf (0-2) Urine WBC 0-5/hpf (0-5) Urine Epithelial Cells Few/hpf (NONE-MOD) Urine Crystals None seen (NONE SEEN) Urine Bacteria None/hpf (NONE-FEW) Urine Hyaline Casts Occasional/lpf (NONE) Urine Granular Casts None seen (NONE SEEN) Urine Waxy Casts None seen (NONE SEEN) Urine Red Blood Cell Casts None seen (NONE SEEN) Urine White Blood Cell Casts None seen (NONE SEEN) Urine Mucus None seen (None Seen) Urine Trichomonas None seen (NONE SEEN) Urine Yeast None (NONE SEEN) Urinalysis Comment None Urine Culture Reflexed Not indicated Urine Legionella pneumophilia Ag Negative (Negative) Hold Urine Received (Received) Microbiology 09/03/16 MRSA (PCR) - Final, Complete 09/03/16 Streptococcus pneumoniae Ag Screen - Final, Complete Result Diagram: 09/03/1610909/03/16109 General Appearance: Cooperative, Mild Distress Extremities: No Compartment Syndrom Noted, Thigh & Calf Soft/Nontender Postop Sensory Motor: Distal Motor Intact, Movement in Toes, Distal Sensation Intact Activity: Activity per PT, Ambulate with PT (partial weightbearing only on the left lower extremity using front wheeled walker and maximum assist for mobilization.) Catheters: Urethral 2 Way Casey Assessment & Plan Impression Patient is an 89-year-old male who has suffered a ground-level fall sustaining a left intertrochanteric fracture which was repaired with a long IM nail on by Dr. Pancho Rivera. Patient has a history of recurrent pneumonia and some apparent cognitive dysfunction.. Problems: Plan Postop day #1 from right femoral long IM nail placed on 09/[address] Pancho Rivera. Partial weightbearing only on the left lower extremity using frontwheel walker and maximum assist for mobilization with physical therapy. Continue formal physical therapy for mobility, gait and safety. Swallow eval pending by speech therapy. Patient currently on thickened liquids for swallow precautions. Continue IV pain medication until swallow evaluation is completed, ideally today. Continue Lovenox 40 mg subcutaneous daily for DVT prophylaxis. Wound care consultation regarding pressure wound. Social service will consult regarding discharge disposition to residential facility. Casey in place and working. Hospitalist service will evaluate continued antibiotic treatment in light of lab results. Interoperative dressing will be changed to postoperative dressing on postoperative day #2 Follow up in 2 weeks at [facility] orthopedic clinic for wound check and staple removal with 2 view left femur x-rays on arrival. Orthopedics thanks hospitalist service for their help in the medical management of this patient. Anticipate discharge to residential facility by hospitalist service on postop day #3 if patient is determined to be medically stable to do so by hospitalist service. VTE Prophylaxis: Sub-Q Enoxaparin (Lovenox 40 mg subcutaneous daily for DVT prophylaxis.) Resuscitation Status: Limited Interventions (DO NOT RESUSCITATE) Jake Hall PA-C Sep 04, 2016 06:15
[2016-09-04] MEDS: HYDROcodone-APAP 5-325 mg Tablet PO PRN ×3 (06:20→19:58)
[2016-09-04 06:44] LABS: BASOPHILS % (AUTO) 0.1 % (0-3); EOSINOPHILS % (AUTO) 0 % (0-5); MONOCYTES % (AUTO) 3.8 % (4-12); Mean Corpuscular Hemoglobin 26.2 pg (27.0-35.0); Mean Corpuscular Volume 86.9 fL (81-100); NEUTROPHILS % (AUTO) 53.5 % (40-74); Platelet Count 44 bil/L (150-400)
--- NOTE | 2016-09-04 07:22 | PCM.ANEP2 ---
Post Anesthesia Evaluation ASA/CMS Post Anesthesia VS in Patient's Normal Range?: Yes Resp Stable; Airway Patent?: Yes CV Function & Hydration Stable: Yes Mental Status Recovered?: Yes Pain control Satisfactory?: Yes N/V Control Satisfactory?: Yes Chapincito Zambrano MD Sep 04, 2016 07:22
--- NOTE | 2016-09-04 07:35 | NUR ---
Skin / swallow / urine output Pt moved to P500 WALTER bed for better skin protection, continued with turns Q2 hours. Mepilex applied to open area on sacrum. Pain moderately well controlled with IV Morphine Q4 hours through night. Transitioned to oral pain med in am after pt passed nurse swallow eval. Per phone conversation with son, pt had multiple swallow evals last fall through [facility] and is able to tolerate thin liquids and normal diet. PAC made aware of low urine output overnight. Hourly rounding ongoing.
[2016-09-04 08:12] VITALS: BP 98/57; PULSE 95; RESP 16; O2SAT 98
[2016-09-04] MEDS: Sodium Chloride LOK Flush 10 mL Syringe IV SCH ×2 (08:20→13:18)
[2016-09-04] MEDS: Insulin LISPRO 300 Unit/3 mL Inj SUBQ SCH ×4 (08:20→22:08)
--- NOTE | 2016-09-04 08:39 | DRSVH ---
PROCEDURE: X-RAY LEFT FEMUR, TWO VIEWS ([id number]) INDICATIONS: post op left femur IM nailing TECHNIQUE: 2 views of the femur were acquired. COMPARISON: [facility], , XR FEMUR 2VW LT, 09/03/2016, 0:53. FINDINGS: Bones: Improved alignment status post ORIF of left intratrochanteric hip fracture. A femoral IM jana present in expected position as well as proximal dynamic hip screw and fully threaded distal fixation screw. Soft tissues: No suspicious soft tissue calcifications or masses. Vascular IMPRESSION: Good alignment status post ORIF. Dictated by: Tramaine Ramires RRA Interpreted: Marisela Villegas MD on 09/04/2016 at 8:38 Transcribed by: HOSSEIN on 09/04/2016 at 8:39 Approved by: Marisela Villegas MD, PhD on 09/04/2016 at 18:03
--- NOTE | 2016-09-04 10:13 | NUR ---
[facility] can accept patient with to follow Updated READING INTERVENTION TEACHER Addendum: 09/04/16 at 1150 by SHANIA GOLD CM [facility] with [facility] to follow and they have a PVT room available.
--- NOTE | 2016-09-04 11:12 | NUR ---
Wound Care [facility] Patient evaluated for pressure ulcer to sacrum. Patient getting up with PT upon wound care arrival. Patient with 2 small open areas to left sacrum, covered with Mepilex. Open areas measure approx 0.2cmL x 0.2cmW x 0.1cm D, Stage III pressure injury with no drainage noted. Both ulcers present on admission. Recommend nursing continue to keep covered with Mepilex and change q48 hours and PRN soiling. Patient also noted with skin tears to right anterior leg measuring 2cm L x 1cm W x less than 0.1cm D with 100% red base with minimal bloody drainage and to right elbow measuring 2cmL x 1cmW x less than 0.1cm D with 100% thin yellow slough and scant yellow serous drainage. Recommend continue to keep covered with Mepilex and change q48 hours and PRN soiling. Patient currently using P500 bed. Recommend continued use of P500 and q2 hour turning schedule with heels floated. Wound care to follow up as needed.
--- NOTE | 2016-09-04 11:52 | NUR ---
Evaluation completed. Please go to "Notes" then click on "Assessments and Notes" (bottom left corner of screen). Then select appropriate discipline tab on top of screen.
[2016-09-04 12:05] VITALS: BP 98/58; PULSE 101; RESP 16; O2SAT 93
[2016-09-04] MEDS: Senna-Docusate 8.6-50 mg Tablet PO SCH ×2 (12:10→19:57)
[2016-09-04] MEDS: Albuterol-Ipratropium 3 mL Inhalation Solution NEB PRN ×2 (12:13→12:15)
[2016-09-04 12:18] VITALS: PULSE 99; RESP 20; O2SAT 96
[2016-09-04] MEDS: 0.9% Sodium Chloride 1,000 ML IV SCH ×2 (13:17→22:45)
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
--- NOTE | 2016-09-04 15:25 | DRSVH ---
PROCEDURE: CT CHEST WITHOUT CONTRAST ([id number]) INDICATIONS: chronic cough, lung nodule TECHNIQUE: Noncontrast 5 mm thick sections acquired from the pulmonary apices to the posterior costophrenic angl es. 7 mm thick coronal and sagittal MIP reformats were then acquired. For radiation dose reduction, the following was used: automated exposure control, adjustment of mA and/or kV according to patient size. COMPARISON: [facility], CT, CHEST W/O CONTRAST, 09/07/2015, 19:08. FINDINGS: Image quality: Excellent. 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 There is increased, severe airspace opacification and volume loss involving the right lower lo be. No pneumothorax. Decreased, small right pleural effusion, which demonstrates peripheral thickenin g. Mediastinum: Heart size is normal. There is calcification of the coronary vasculature. No pericardia l effusion. No change in retrocrural adenopathy measuring 18 mm short axis. Thoracic aorta and centr al pulmonary arteries are normal in size. Esophagus is normal in caliber. No hiatal hernia. Bones and chest wall: No suspicious bony lesions. No vertebral body compression fractures. No axil fidel or supraclavicular adenopathy by size criteria. Thyroid gland is within normal limits as visual ized. Abdomen: Visualized upper abdominal solid organs and bowel loops appear normal in the absence of con trast. IMPRESSION: 1. 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 There is increas ed, severe right lower lobe airspace opacity and volume loss. Underlying neoplasm may be present. 2. No change in retrocrural adenopathy, possibly metastatic. 3. Decreased, small right pleural effusion, which demonstrates peripheral thickening. 4. Coronary artery disease. Dictated by: Zuri Amezquita M.D. on 09/04/2016 at 15:20 Approved by: Zuri Amezquita M.D. on 09/04/2016 at 15:24
[2016-09-04] MEDS: Lactated Ringer's 1,000 ML IV SCH ×2 (17:50→23:10)
[2016-09-04 18:25] VITALS: BP 101/50; PULSE 93; RESP 16; O2SAT 95
[2016-09-04 20:10] VITALS: BP 114/63; PULSE 92; RESP 16; O2SAT 96
[2016-09-05] MEDS: HYDROcodone-APAP 5-325 mg Tablet PO PRN (00:17)
[2016-09-05] MEDS: Sodium Chloride LOK Flush 10 mL Syringe IV SCH (00:17)
--- NOTE | 2016-09-05 04:28 | PROCED ---
[address] [address] PROCEDURE NOTE PATIENT: MARISOL PEREZ : 1925 MR#: [id number] ADMIT: 09/03/2016 JOB ID: [id number] DATE OF SERVICE: 09/05/2016 PREOPERATIVE DIAGNOSIS(ES): POSTOPERATIVE DIAGNOSIS(ES): SURGEON: CODE BLUE: I was called to the bedside for cardiac arrest with code status reported to me as DO NOT INTUBATE. Other resuscitative measures were apparently desired by family members. Patient was making no respiratory effort and was being ventilated with [id number]. Initial rhythm was flatlined and a single epinephrine produced an agonal appearing PEA beat. He was being adequately ventilated and additional epinephrine and calcium were given with return of a strong heartbeat. At that point, the power of ip technology transactions attorney, son, was contacted on the phone and he made it clear that no resuscitative efforts were desired, contrary to our prior information. Accordingly, respiratory support with bag-valve was discontinued and CPR was discontinued. He had a continuing pulse for about a five minute period with occasional ineffective respiratory efforts noted, and peacefully without further intervention.
--- NOTE | 2016-09-05 05:13 | NUR ---
Code Blue / Pt was somnolent but arousable at 0330 when BG obtained, upon return with medication, pt noted to have stopped breathing. Code Blue called and resuscitation attempted without success, pt noted to have limited DNR status; code stopped by Md without intubation. Family notified of , senior grants officer notified and authorization for release of body obtained. Pt deemed unsuitable for organ donation related to age. Body removed to [facility], home to be identified and notified in am.
--- NOTE | 2016-09-05 10:11 | PCM.DC.MED ---
Discharge Summary Date of Service Sep 05, 2016 Dates of Hospitalization Date of Hospital Admission Sep 03, 2016 at 01:23 Date of Discharge: Sep 05, 2016 Providers: Admitting Physician: Edi Sauer MD Primary Care Physician: Kyle Holcomb MD Attending Physician: Edi Sauer MD Diagnosis at Time of Discharge Diagnosis at Time of Discharge Differential for sudden cardiac , pulmonary embolism versus arrhythmia Consultations Orthopedics/Marine Procedures XRay, CTs & MRIs pelvic/hip x-ray demonstrates nondisplaced intertrochanteric/femoral neck fracture on the left. This is further demonstrated on the left femur 2 view x-ray. chest x-ray demonstrates obvious right lower lobe infiltrative abnormality with the question of a fluid filled fissure (please note patient's significant history of right pleural effusion and recurrent pneumonias). The diaphragms appear to be somewhat flattened but just does not overall appear hyperinflated. Multiple rib fractures on the right (do not appear acute). Images rotated, so cannot make determination regarding cardiac shadow at this time. Please refer to past medical history for findings on CT scan last year. ECG 12 Lead EKG shows sinus rhythm with a rate of 78. QTc is 461. RI is prolonged at 229. Left axis deviation with LAFB. Poor R-wave progression. One PVC. No ST or T -wave changes suggestive of acute ischemia. Invasive Procedures ORIF left femur 09/03 Brief History 89-year-old male with who fell when getting up to open his window lost his balance and fell on his left side. He reports that he did not strike his head, but did experience immediate left hip pain. He was brought to the ER by EMS. At the time of my visit with him, he denied any left hip pain whatsoever. Hospital Course 89-year-old admit 09/03 w/ L hip fx, s/p ORIF 09/03. 09/04 spoke to son David Bennett (yes really) [phone]. First day meeting medically complex patient one day postop broken hip 09/05 nurse checked on the patient 3:30 AM and he was stable, returned 5 AM patient had . #Sudden cardiac differential includes arrhythmia versus pulmonary embolism 09/05 5 AM #Acute blood loss anemia-not unexpected after long bone fracture # Left-sided intertrochanteric femoral neck fracture secondary to mechanical ground-level fall, acute. Present on admission -Dr. Rivera/ortho s/p ORIF 09/03 -PT eval/tx -likely SNF 09/07 # cough and abn cxr/Hx recurrent pneumonia - tx CAP - Ceftriaxone, azithromycin 09/03- -Consider addition of coverage for aspiration -Spoke to PCP Zhang, CT chest unchanged from June 2015 concerning for neoplasm -Swallow eval again # Leukocytosis-treating pneumonia with Zmax/Rocephin, follow WBCs #Hyperglycemia with documented history of type II diabetes, presumed acute on chronic. Present on admission -A1c pending -SS insulin . Exam Vital Signs (Last) Date Time Temp Pulse Resp B/P Pulse Ox O2 Delivery O2 Flow Rate FiO2 09/04/16 20:10 36.7 92 16 114/63 96 Room Air 09/04/16 08:12 4.00 Exam Not seen Test 09/03/16 01:10 09/03/16 07:23 09/03/16 14:00 09/04/16 05:45 Prothrombin Time 10.7sec (8.1-12.5) Prothromb Time International Ratio 1.00ratio Hemoglobin A1c 8.6% (4.8-5.6) Total Bilirubin 0.6mg/dL (0.0-1.2) Aspartate Amino Transf (AST/SGOT) 11U/L (0-50) Alanine Aminotransferase (ALT/SGPT) 5U/L (0-44) Alkaline Phosphatase 92U/L (25-160) Total Protein 8.6g/dL (6.4-8.4) Albumin 3.7g/dL (3.4-5.0) Prealbumin 18mg/dL (20-40) Hold Whitaker Top Tube Received (Received) Urine Color Yellow (YELLOW) Urine Appearance Clear (CLEAR,HAZY) Urine pH 6.0 (5.0-8.0) Urine Specific [place] 1.022 (1.003-1.035) Urine Protein 30mg/dL (NEG,TRACE) Urine Glucose (UA) Negativemg/dL (NEGATIVE) Urine Ketones Negativemg/dL (NEGATIVE) Urine Occult Blood Small (NEGATIVE) Urine Nitrite Negative (NEGATIVE) Urine Bilirubin Negative (NEGATIVE) Urine Urobilinogen Normalmg/dL (NORMAL) Urine Leukocyte Esterase Negative (NEGATIVE) Urine RBC 11-50/hpf (0-2) Urine WBC 0-5/hpf (0-5) Urine Epithelial Cells Few/hpf (NONE-MOD) Urine Crystals None seen (NONE SEEN) Urine Bacteria None/hpf (NONE-FEW) Urine Hyaline Casts Occasional/lpf (NONE) Urine Granular Casts None seen (NONE SEEN) Urine Waxy Casts None seen (NONE SEEN) Urine Red Blood Cell Casts None seen (NONE SEEN) Urine White Blood Cell Casts None seen (NONE SEEN) Urine Mucus None seen (None Seen) Urine Trichomonas None seen (NONE SEEN) Urine Yeast None (NONE SEEN) Urinalysis Comment None Urine Culture Reflexed Not indicated Urine Legionella pneumophilia Ag Negative (Negative) Hold Urine Received (Received) White Blood Count 16.2th/mm3 (3.8-10.1) Red Blood Count 3.28mil/mm3 (4.40-5.80) Hemoglobin 8.6g/dL (13.8-17.2) Hematocrit 28.5% (41.0-50.0) Mean Corpuscular Volume 86.9fL (81-100) Mean Corpuscular Hemoglobin 26.2pg (27.0-35.0) Mean Corpuscular Hemoglobin Concent 30.2% (32.0-37.0) Red Cell Distribution Width 14.5% (12.3-15.4) Platelet Count 44bil/L (150-400) Neutrophils (%) (Auto) 53.5% (40-74) Lymphocytes (%) (Auto) 42.4% (14-46) Monocytes (%) (Auto) 3.8% (4-12) Eosinophils (%) (Auto) 0% (0-5) Basophils (%) (Auto) 0.1% (0-3) Sodium Level 136mEq/L (134-144) Potassium Level 4.9mEq/L (3.5-5.2) Chloride Level 99mEq/L (97-108) Carbon Dioxide Level 23mmol/L (18-29) Blood Urea Nitrogen 22mg/dL (8-27) Creatinine 1.18mg/dL (0.76-1.27) Estimat Glomerular Filtration Rate 62mL/min (>59) Glucose Level 211mg/dL (60-99) Calcium Level 8.3mg/dL (8.5-10.1) Procalcitonin 0.24ng/mL (0.00-0.08) Discharge Medications Miscellaneous Medications ([ventolin]) (Reported) Followup Plan Disposition: Patient copies to: Kyle Holcomb MD, Andris E MD Sep 05, 2016 07:30
--- NOTE | 2016-09-07 13:35 | NUR ---
LATE NOTE FOR 09/04/16 POST-OP PROGRESS Patient is confused at this time. Hard of hearing. Patient's PO2 on room air low to mid 90's. Hydrocodone/APAP 1 tab was administered for pain control. Tolerating liquids PO and his diet well. No nausea voiced. No emesis noted. Patient was able to get OOB and stand and dangle at the bedside with 2 max assist. Tolerated activity poorly. Dressing is CDI. IFC intact and draining to ino colored UO. SCD's are on. Mepilex foam in place on his RUE/RLE and buttocks. WCS was in to assess skin. Please refer to her notes. Sitter is at the bedside and assisting with his care. [place] alarm is on. Dr. Mike was made aware at the start of the shift RE: Son's concerns RE: Lung problems. CT scan was ordered. Patients son David was updated and Dr. Mike to call patients son and update him RE: Patients progress.
== END 2016-09-05 05:13 | disposition expired | DRG 481 ==
LOC: EDBD 23:33 → EDUNIT# 23:33 → SED 23:33 → OSC 09-03 01:23
PROVIDERS: ADMIT Hospitalist; ATTEND Hospitalist
PROC: 0QS706Z Reposition Left Upper Femur with Intramedullary Internal Fixation Device, Open Approach (ICD-10-PCS; principal; 2016-09-03 15:00)
DX: S72.142A Displaced intertrochanteric fracture of left femur, initial encounter for closed fracture (principal); D62 Acute posthemorrhagic anemia; W01.0XXA Fall on same level from slipping, tripping and stumbling without subsequent striking against object, initial encounter; Y92.129 Unspecified place in nursing home as the place of occurrence of the external cause; J44.9 Chronic obstructive pulmonary disease, unspecified; I10 Essential (primary) hypertension; E78.5 Hyperlipidemia, unspecified; I44.0 Atrioventricular block, first degree; E11.65 Type 2 diabetes mellitus with hyperglycemia; Z87.01 Personal history of pneumonia (recurrent); I46.9 Cardiac arrest, cause unspecified